=== PATIENT | male | born 1980 | race Caucasian/White ===

== ENCOUNTER 2021-09-15 12:38 | Emergency (ER) | payer OTHER ==
[~2021-09-15] VITALS: Ht 170.2 cm; Wt 169.6 kg
[2021-09-15 12:41] VITALS: BP_SYST 170
[2021-09-15] MEDS ORDERED: CYCL10TA24 PO (12:48)
[2021-09-15] MEDS ORDERED: ACET325T53 PO (12:48)
[2021-09-15] MEDS ORDERED: IBUP-1969 PO (12:48)
[2021-09-15] MEDS: ACETAMINOPHEN 500 MG TABLET PO ONE (12:50)
[2021-09-15] MEDS: IBUPROFEN 600 MG TABLET PO ONE (12:50)
[2021-09-15 13:00] VITALS: BP_SYST 167
== END 2021-09-15 13:00 | disposition home or self-care (01) ==
LOC: SED 12:38
DX: S16.1XXA Strain of muscle, fascia and tendon at neck level, initial encounter (principal); M79.622 Pain in left upper arm; M79.10 Myalgia, unspecified site; I10 Essential (primary) hypertension; G47.30 Sleep apnea, unspecified; Z79.899 Other long term (current) drug therapy; V43.32XA Unspecified car occupant injured in collision with other type car in nontraffic accident, initial encounter; Y93.89 Activity, other specified; Y92.488 Other paved roadways as the place of occurrence of the external cause; Y99.8 Other external cause status
CPT/HCPCS: 99283